=== PATIENT | male | born 1975 | race American Indian/Alaskan Native ===

== ENCOUNTER 2018-01-31 23:59 | Emergency (ER) | payer BC ==
[2018-02-01] MEDS ORDERED: ANUCORT-HC PR ONE ×3 (02:51→02:55)
[2018-02-01] MEDS ORDERED: TORADOL ONE (02:52)
[2018-02-01] MEDS ORDERED: TORADOL IM ONE (02:52)
[2018-02-01 03:08] VITALS: BP 126/73
--- NOTE | 2018-02-01 03:09 | Emergency Department Report ---
ED General Adult HPI - General Chief complaint: Rectal Pain Stated complaint: RETCAL PAIN Time Seen by Provider: 02/01/18 02:08 Source: patient Mode of arrival: Ambulatory Limitations: No Limitations - History of Present Illness Initial comments: 42-year-old -Serbian male comes to the emergency room for rectal pain 2 days. Patient states it is his hemorrhoids. Patient reports that he has tried all [id number] medications without much relief. Patient reports that he has been evaluated in the past by his rd scientist. He reports he just can't get out of pain. Patient reports a past medical history of hypertension diabetes. -: days(s) (2) Location: buttocks (rectum) Radiation: non-radiation Severity scale (0 -10): 8 Quality: sharp Consistency: constant Improves with: none Worsens with: movement, other (sitting) Associated Symptoms: denies other symptoms Treatments Prior to Arrival: none - Related Data Previous Rx's Medication Instructions Recorded Last Taken Type Hydrocortisone [Anusol-Hc] 30 gm RC Q8H PRN #1 box 02/01/18 Unknown Rx Ibuprofen [Motrin 800 MG tab] 800 mg PO Q8HR PRN #30 tablet 02/01/18 Unknown Rx Allergies Allergy/AdvReac Type Severity Reaction Status Date / Time No Known Allergies Allergy Unverified 02/01/18 00:06 ED Review of Systems ROS: Stated complaint: RETCAL PAIN Other details as noted in HPI Constitutional: denies: chills, fever Eyes: denies: eye pain, eye discharge, vision change ENT: denies: ear pain, throat pain Respiratory: denies: cough, shortness of breath, wheezing Cardiovascular: denies: chest pain, palpitations Endocrine: no symptoms reported Gastrointestinal: other (rectum pain). denies: abdominal pain, nausea, diarrhea Genitourinary: denies: urgency, dysuria Musculoskeletal: denies: back pain, joint swelling, arthralgia Skin: denies: rash, lesions Neurological: denies: headache, weakness, paresthesias Psychiatric: denies: anxiety, depression Hematological/Lymphatic: denies: easy bleeding, easy bruising ED Past Medical Hx - Past Medical History Previous Medical History?: Yes Hx Hypertension: Yes Hx Diabetes: Yes - Surgical History Past Surgical History?: Yes Additional Surgical History: thyroid, leg - Social History Smoking Status: Never Smoker Substance Use Type: None - Medications Home Medications: Home Medications Medication Instructions Recorded Confirmed Last Taken Type Hydrocortisone [Anusol-Hc] 30 gm RC Q8H PRN #1 box 02/01/18 Unknown Rx Ibuprofen [Motrin 800 MG tab] 800 mg PO Q8HR PRN #30 tablet 02/01/18 Unknown Rx ED Physical Exam - General Limitations: No Limitations General appearance: alert, in no apparent distress - Head Head exam: Present: atraumatic, normocephalic - Eye Eye exam: Present: normal appearance - ENT ENT exam: Present: mucous membranes moist - Neck Neck exam: Present: normal inspection - Respiratory Respiratory exam: Present: normal lung sounds bilaterally - Cardiovascular Cardiovascular Exam: Present: regular rate - GI/Abdominal GI/Abdominal exam: Present: soft - Rectal Rectal exam: Present: hemorrhoids (non thrombosis not bleeding) - Extremities Exam Extremities exam: Present: normal inspection - Back Exam Back exam: Present: normal inspection - Neurological Exam Neurological exam: Present: alert, oriented X3 - Psychiatric Psychiatric exam: Present: normal affect, normal mood - Skin Skin exam: Present: warm, dry, intact, normal color. Absent: rash ED Medical Decision Making - Medical Decision Making Patient's been evaluated by this provider fast track. I discussed the patient that he does have a external hemorrhoid does not appear to be thrombosed and not actively bleeding. I did discuss the patient felt a internal hemorrhoid as well I will place an Anusol suppository to help with discomfort. Recommended patient to follow up with the bookmobile clerk for further evaluation and possible hemorrhoidectomy. Patient verbalized understanding. Critical care attestation.: If time is entered above; I have spent that time in minutes in the direct care of this critically ill patient, excluding procedure time. ED Disposition Clinical Impression: Hemorrhoids, internal, Hemorrhoids, external Disposition: DC-01 TO HOME OR SELFCARE Is pt being admited?: No Does the pt Need Aspirin: No Condition: Stable Instructions: Hemorrhoids (ED) Additional Instructions: Please use suppositories as prescribed. Follow up with her bookmobile clerk or colon specialist. Prescriptions: Hydrocortisone [Anusol-Hc] 30 gm RC Q8H PRN #1 box PRN Reason: rectal pain Ibuprofen [Motrin 800 MG tab] 800 mg PO Q8HR PRN #30 tablet PRN Reason: Pain Referrals: JOVANNY MYLES MD [Primary Care Provider] - 3-5 Days [facility] [Provider Group] - 3-5 Days Forms: Work/School Release Form(ED)
== END 2018-02-01 03:45 | disposition home or self-care (01) ==
LOC: ED 23:59
DX: K62.5 Hemorrhage of anus and rectum (principal); I10 Essential (primary) hypertension; E11.9 Type 2 diabetes mellitus without complications
CPT/HCPCS: 96372; 99282; J1885